=== PATIENT | female | born 1965 | race Caucasian/White ===

== ENCOUNTER 2016-09-11 15:46 | Emergency (ER) | payer SELFPAY ==
[2016-09-11] MEDS ORDERED: Acetaminophen/HYDROcodone 325-5 MG Tab PO ONE (16:04)
--- NOTE | 2016-09-11 16:11 | EDM.PDOC ---
ED HPI Trauma - General Chief Complaint: Trauma Stated Complaint: L RIB INJURY Time Seen by Provider: 09/11/16 16:00 Source: Reports: Patient History Limitations: Reports: No limitations - History of Present Illness INITIAL COMMENTS - FREE TEXT/NARRATIVE: 51 yo female slipped on a wet floor this morning at home falling and striking her L ant/lateral chest just beneath her L breast. Pain is progressing over the course of the day. Taking ibuprofen and acetaminophen without adequate relief. No other injuries. Symptom Onset Date: 09/11/16 Symptom Onset Time: 09:00 Occurred When: this morning Occurred Where: home Method of Injury: fall Severity: moderate Pain/Injury Location: Reports: chest Consciousness: Reports: no loss of consciousness Associated Symptoms: Reports: other (rib pain) Review of Systems - Review of Systems Review Of Systems: See Below Constitutional: Reports: no symptoms Respiratory: Reports: Pleuritic Chest Pain Cardiovascular: Reports: no symptoms GI/Abdominal: Reports: No symptoms Musculoskeletal: Reports: other (chest wall pain) Skin: Reports: no symptoms Neurological: Reports: No Symptoms ED EXAM, TRAUMA (MAJOR/MULTI) - Physical Exam Exam: See Below Exam Limited By: No limitations General Appearance: alert, WD/WN, no apparent distress Head: atraumatic, normocephalic Eyes: bilateral eye: normal inspection Ears: normal external exam, normal canal, hearing grossly normal, normal TMs Nose: normal inspection, normal mucousa, no blood Throat/Mouth: Normal inspection, Normal lips, Normal teeth, Normal oropharynx, Normal voice, No airway compromise Neck: non-tender, full range of motion Cardiovascular: regular rate, rhythm, no edema Respiratory/Chest: no respiratory distress, lungs clear, normal breath sounds, no accessory muscle use, rib tenderness, left. No: respiratory distress, decreased breath sounds, crackles, rales, rhonchi, wheezing, accessory muscle use, retractions, subcutaneous emphysema, rib tenderness, right GI/Abdominal: normal bowel sounds, soft, non tender Back: full range of motion Extremities: no evidence of injury, normal range of motion, non-tender, no pedal edema Neurologic: no motor/sensory deficits, alert, normal mood/affect, oriented x 3 Skin: Normal color, Warm/dry Course - Vital Signs Text/Narrative:: CXR-neg [place] 1 po - Orders/Labs/Meds Orders: Active Orders 24 hr Category Date Time Status Chest 2V [CR] Stat Exams 09/11/16 16:04 Ordered Meds: Medications Discontinued Medications Generic Name Dose Route Start Last Admin Trade Name Ashlyn PRN Reason Stop Dose Admin Acetaminophen/Hydrocodone Bitart 1 tab 09/11/16 16:04 [place] 325-5 Mg PO 09/11/16 16:05 ONETIME ONE Departure - Departure Time of Disposition: 16:30 Disposition: Home, Self-Care 01 Condition: good Clinical Impression: Rib injury - My Orders Last 24 Hours: My Active Orders 09/11/16 16:04 Chest 2V [CR] Stat - Assessment/Plan Last 24 Hours: My Active Orders 09/11/16 16:04 Chest 2V [CR] Stat
[2016-09-11 20:23] VITALS: BP 100/69
--- NOTE | 2016-09-12 15:06 | CR ---
INDICATION: Left rib injury, question pneumothorax. CHEST: Two PA views and a lateral view of the chest were obtained with inspiration/expiration PA views. No evidence of a pneumothorax was identified. Somewhat heavy markings at the left lung base raise question of a minimal contusion versus fibrosis or patchy bronchopneumonia. There is an appearance of a small nodular density in the left upper middle lung field which is lateral to the arch of the aorta. This could represent a granuloma, however, comparison with previous examination is strongly recommended to exclude the possibility of neoplasia. If no previous studies are available, CT examination without and possibly with IV contrast, as necessary) may be warranted. The heart appeared normal in size and shape. The aorta is slightly tortuous. No pneumothorax or effusion could be identified. Bony structures appear to be grossly intact. IMPRESSION: 1. Heavy markings at the left lung base which could be on the basis of pulmonary contusion, although fibrosis or patchy bronchopneumonia could also be present with that appearance. 2. No evidence of pneumothorax. 3. Nodular density upper middle lung field on the left needs to be compared with a previous chest x-ray. If none are available, CT without IV contrast, and possibly with IV contrast may be warranted. MTDD
== END 2016-09-11 20:36 | disposition home or self-care (01) ==
LOC: FB.ED 15:46
DX: S29.9XXA Unspecified injury of thorax, initial encounter (principal); W19.XXXA Unspecified fall, initial encounter
CPT/HCPCS: 71020; 99284; A9270; 99283